=== PATIENT | female | born 1970 | race Caucasian/White ===

== ENCOUNTER 2022-06-19 11:10 | Outpatient (CLI) | payer OTHER | END 2022-06-19 11:11 | disposition home or self-care (01) | LOC: CSHRAD 11:10 | PROVIDERS: ATTEND Psychiatry & Neurology Neurology | DX: G35 Multiple sclerosis (principal); M20.11 Hallux valgus (acquired), right foot; M21.172 Varus deformity, not elsewhere classified, left ankle; M79.89 Other specified soft tissue disorders; M89.9 Disorder of bone, unspecified; M77.32 Calcaneal spur, left foot ==

== ENCOUNTER 2022-07-05 11:25 | Emergency (ER) | payer OTHER ==
[2022-07-05] MEDS ORDERED: Morphine 4 MG/ML VIAL ONE (12:20)
[2022-07-05] MEDS ORDERED: Ketorolac Tromethamine 30 MG/ML VIAL ONE (12:21)
[2022-07-05] MEDS ORDERED: Ondansetron PF 4 MG/2 ML Vial ONE (12:21)
[2022-07-05 12:43] LABS: #Basophils 0.1 10x3/uL (0.0-0.2); #Eosinphils 0.1 10x3/uL (0.0-0.5); #Monocytes 0.4 10x3/uL (0.0-1.1); #Neutrophils 4.8 10x3/uL (1.5-8.4); %Basophils 0.6 % (0.0-2.0); %Eosinophils 1.4 % (0.0-6.0); %Monocytes 5.3 % (0.0-10.0); %Neutrophils 60.2 % (40.0-75.0); Hemoglobin 10.8 g/dL (12.0-15.5); Mean Corpuscular HGB CONC 32.8 g/dL (32.0-36.0); Mean Corpuscular Hemoglobin 25.8 pg (27.0-33.0); Mean Corpuscular Volume 78.5 fl (81.6-98.3); Mean Platelet Volume 9.7 fl (7.4-10.4); Platelet Count 455 10x3/uL (150-450); RBC Distribution Width 15.1 % (11.5-14.5); Red Blood Cell (RBC) Count 4.19 10x6/uL (3.90-5.03); White Blood Cell (WBC) Count 7.9 10x3/uL (3.5-10.5)
[2022-07-05 12:54] LABS: Bilirubin Neg (Negative); Blood, Urine Negative (Negative); Clarity Clear (Clear); Glucose, Urine (Dipstick) Normal (Negative); Ketone, Urine 5 mg/dL (Negative); Leukocyte Negative (Negative); Nitrite Negative (Negative); Protein, Urine (Dipstick) Negative (Neg-Trace); Specific Gravity, Urine 1.005 (1.005-1.030); Urobilinogen Normal mg/dL (Less than 2)
[2022-07-05] MEDS ORDERED: methylPREDNISolone Sod Succ 1 GM in Sodium Chloride 0.9% 100 ML IVPB SCH (13:00)
[2022-07-05 13:28] LABS: ALT (SGPT) Less than 6 U/L (8-55); AST (SGOT) 9 U/L (5-34); Albumin 3.7 g/dL (3.5-5.0); Alkaline Phosphatase 80 U/L (40-110); Anion Gap 14 mmol/L (10-20); BUN (Urea Nitrogen) 13 mg/dL (7.0-18.7); Bilirubin, Total 0.3 mg/dL (0.2-1.2); CK (CPK) 29 U/L (29-168); Calc. Creatinine Clearance 0 mL/min (70-130); Calcium 9.4 mg/dL (7.8-10.44); Carbon Dioxide 23 mmol/L (22-29); Chloride 105 mmol/L (98-107); Estimated GFR 55; Glucose 222 mg/dL (70-105); Magnesium 1.5 mg/dL (1.6-2.6); Potassium 3.6 mmol/L (3.5-5.1); Protein, Total 6.7 g/dL (6.0-8.3); Sodium 138 mmol/L (136-145)
[2022-07-05] MEDS ORDERED: Magnesium 2 GM/50 ML BAG (IN WATER) ONE (13:39)
== END 2022-07-05 13:57 | disposition home or self-care (01) ==
LOC: CSHERS 11:25
DX: G35 Multiple sclerosis (principal); E11.9 Type 2 diabetes mellitus without complications; Z79.4 Long term (current) use of insulin; K21.9 Gastro-esophageal reflux disease without esophagitis; I10 Essential (primary) hypertension
CPT/HCPCS: 71045; 80053; 81003; 82550; 83605; 83735; 85025; 86140; 93005; 96365; 96375; J1885; J2270; J2405; J2930; J3475; J3490

== ENCOUNTER 2022-07-17 13:31 | Emergency (ER) | payer OTHER ==
[2022-07-17] MEDS ORDERED: Acetaminophen 500 MG TAB ONE (14:07)
[2022-07-17] MEDS ORDERED: methylPREDNISolone Sod Succ/PF 125 MG/2 ML VIAL ONE (14:08)
[2022-07-17 14:24] LABS: #Basophils 0.1 10x3/uL (0.0-0.2); #Eosinphils 0.1 10x3/uL (0.0-0.5); #Monocytes 0.5 10x3/uL (0.0-1.1); #Neutrophils 4.9 10x3/uL (1.5-8.4); %Basophils 0.6 % (0.0-2.0); %Eosinophils 1.2 % (0.0-6.0); %Lymphocytes 30.1 % (18.0-47.0); %Monocytes 6.1 % (0.0-10.0); %Neutrophils 61.3 % (40.0-75.0); Mean Corpuscular HGB CONC 31.5 g/dL (32.0-36.0); Mean Corpuscular Hemoglobin 25.4 pg (27.0-33.0); Mean Corpuscular Volume 80.5 fl (81.6-98.3); Mean Platelet Volume 9.4 fl (7.4-10.4); Platelet Count 362 10x3/uL (150-450); RBC Distribution Width 14.8 % (11.5-14.5); Red Blood Cell (RBC) Count 3.94 10x6/uL (3.90-5.03)
[2022-07-17 14:29] LABS: ALT (SGPT) Less than 6 U/L (8-55); AST (SGOT) 12 U/L (5-34); Alkaline Phosphatase 76 U/L (40-110); Anion Gap 17 mmol/L (10-20); BUN (Urea Nitrogen) 17 mg/dL (7.0-18.7); Bilirubin, Total 0.3 mg/dL (0.2-1.2); Calc. Creatinine Clearance 0 mL/min (70-130); Calcium 9.5 mg/dL (7.8-10.44); Carbon Dioxide 22 mmol/L (22-29); Chloride 102 mmol/L (98-107); Estimated GFR 48; Globulin 2.7 g/dL (2.4-3.5); Glucose 261 mg/dL (70-105); Potassium 3.9 mmol/L (3.5-5.1); Protein, Total 6.7 g/dL (6.0-8.3); Sodium 137 mmol/L (136-145)
[2022-07-17 14:40] LABS: Bilirubin Neg (Negative); Blood, Urine Negative (Negative); Clarity Clear (Clear); Glucose, Urine (Dipstick) 100 mg/dL (Negative); Ketone, Urine Negative (Negative); Leukocyte Negative (Negative); Nitrite Negative (Negative); Protein, Urine (Dipstick) Negative (Neg-Trace); Specific Gravity, Urine 1.005 (1.005-1.030); Urobilinogen Normal mg/dL (Less than 2)
[2022-07-17] MEDS ORDERED: Morphine 4 MG/ML VIAL ONE (16:33)
== END 2022-07-17 18:10 | disposition home or self-care (01) ==
LOC: CSHERS 13:31
DX: R07.89 Other chest pain (principal); G35 Multiple sclerosis; E11.9 Type 2 diabetes mellitus without complications; K21.9 Gastro-esophageal reflux disease without esophagitis; I10 Essential (primary) hypertension
CPT/HCPCS: 71045; 80053; 81003; 83880; 84484; 85025; 85379; 93005; 96361; 96374; 96375; J2270; J2930

== ENCOUNTER 2022-09-09 10:29 | Emergency (ER) | payer OTHER ==
[2022-09-09] MEDS ORDERED: HYDROcodone/Acetaminophen 5/325 mg Tablet ONE (11:14)
== END 2022-09-09 12:32 | disposition home or self-care (01) ==
LOC: CSHERS 10:29
DX: R51.9 Headache, unspecified (principal); M25.551 Pain in right hip; M25.561 Pain in right knee; M25.511 Pain in right shoulder; E11.9 Type 2 diabetes mellitus without complications; K21.9 Gastro-esophageal reflux disease without esophagitis; I10 Essential (primary) hypertension; W19.XXXA Unspecified fall, initial encounter
CPT/HCPCS: 70450; 70486

== ENCOUNTER 2024-02-16 21:20 | Inpatient (IN) | payer MEDICAID ==
[~2024-02-16 21:20] MED LIST: Iopamidol 370 76% 100 ML VIAL ONE
[2024-02-16 21:43] LABS: #Basophils 0.07 10x3/uL (0.0-0.2); #Eosinphils 0.24 10x3/uL (0.0-0.5); #Monocytes 0.56 10x3/uL (0.0-1.1); #Neutrophils 6.05 10x3/uL (1.5-8.4); %Basophils 0.7 % (0.0-2.0); %Eosinophils 2.4 % (0.0-6.0); %Monocytes 5.7 % (0.0-10.0); %Neutrophils 61.6 % (40.0-75.0); Hematocrit 35.9 % (34.9-44.5); Mean Corpuscular HGB CONC 30.6 g/dL (32.0-36.0); Mean Corpuscular Hemoglobin 23.5 pg (27.0-33.0); Mean Corpuscular Volume 76.5 fL (81.6-98.3); Mean Platelet Volume 9.2 fL (7.4-10.4); Platelet Count 416 10x3/uL (150-450); RBC Distribution Width 15.5 % (11.5-14.5); Red Blood Cell (RBC) Count 4.69 10x6/uL (3.90-5.03); White Blood Cell (WBC) Count 9.8 10x3/uL (3.5-10.5)
[2024-02-16 21:57] LABS: ALT (SGPT) Less than 7 U/L (8-55); AST (SGOT) 10 U/L (5-34); Acetaminophen Less than 10 mcg/mL (Less than 10); Albumin 4.2 g/dL (3.5-5.0); Alcohol Less than 10.0 mg/dL (Less than 10); Alkaline Phosphatase 112 U/L (40-110); Anion Gap 17 mmol/L (10-20); BUN (Urea Nitrogen) 18 mg/dL (9.8-20.1); Bilirubin, Total 0.3 mg/dL (0.2-1.2); Calc. Creatinine Clearance 0 mL/min (70-130); Calcium 10.2 mg/dL (7.8-10.44); Carbon Dioxide 23 mmol/L (22-29); Chloride 102 mmol/L (98-107); Estimated GFR 54; Globulin 3.7 g/dL (2.4-3.5); Glucose 232 mg/dL (70-105); Magnesium 1.8 mg/dL (1.6-2.6); Potassium 3.9 mmol/L (3.5-5.1); Protein, Total 7.9 g/dL (6.0-8.3); Salicylate Less than 8.0 mg/dL (Less than 8.0); Sodium 138 mmol/L (136-145)
[2024-02-16] MEDS ORDERED: hydrALAZINE 20 MG/ML VIAL SLOW IVP PRN (22:38)
[2024-02-16] MEDS ORDERED: Labetalol HCl 100 MG/20 ML VIAL SLOW IVP PRN (22:38)
[2024-02-16] MEDS ORDERED: Ondansetron PF 4 MG/2 ML Vial IVP PRN (22:38)
[2024-02-16 22:59] LABS: Bilirubin Neg (Negative); Blood, Urine Negative (Negative); Clarity Clear (Clear); Glucose, Urine (Dipstick) Normal (Negative); Ketone, Urine Negative (Negative); Leukocyte Negative (Negative); Nitrite Negative (Negative); Protein, Urine (Dipstick) Negative (Neg-Trace); Specific Gravity, Urine 1.005 (1.005-1.030); Urobilinogen Normal mg/dL (Less than 2)
[2024-02-16] MEDS ORDERED: Dextrose 5% in Water 1,000 ML IV PRN (23:00)
[2024-02-16] MEDS ORDERED: Dextrose 50% Abboject 50 ML SYRINGE SLOW IVP PRN (23:00)
[2024-02-16] MEDS ORDERED: Glucagon 1 MG/ML KIT IM PRN (23:00)
[2024-02-16 23:09] LABS: Amphetamine Not Detected (NotDetected); Barbiturates Screen Not Detected (NotDetected); Benzodiazepine Screen Not Detected (NotDetected); Cocaine Metabolite Screen Not Detected (NotDetected); Methadone Not Detected (NotDetected); Methamphetamine Not Detected (NotDetected); Opiate Screen Not Detected (NotDetected); Oxycodone Screen Not Detected (NotDetected); Phencyclidine (PCP) Not Detected (NotDetected); THC/Cannabinoid Screen Detected (NotDetected); Tricyclic Screen Not Detected (NotDetected)
[2024-02-16] MEDS ORDERED: Aspirin 325 mg Enteric Coated Tablet ONE (23:20)
[2024-02-16 23:35] LABS: Bacteria/HPF Rare-Few HPF (None Seen); CAUTI Indications for Culture Alt mental st,lethar; RBC/HPF None Seen HPF (0-3); Squamous Epithelial 0-3 HPF (0-3); Urine Culture Reflex No No; WBC/HPF None Seen HPF (0-3)
[2024-02-16 23:41] LABS: Iron 47 ug/dL (50-170); Iron Binding Capacity, Total 439 mcg/dL (265-497)
[2024-02-17] MEDS: Acetaminophen 325 MG TAB PO PRN (01:13)
[2024-02-17] MEDS: Pantoprazole DR 40 MG TAB PO SCH ×2 (01:14→19:42)
[2024-02-17] MEDS: methylPREDNISolone Sod Succ 1 GM, Admixture Fee 1 EACH in Sodium Chloride 0.9% 250 ML 2... IVPB SCH ×2 (01:25→22:39)
[2024-02-17 01:36] VITALS: BMI 37.5
[2024-02-17 03:44] LABS: #Basophils 0.03 10x3/uL (0.0-0.2); #Eosinphils 0.07 10x3/uL (0.0-0.5); #Monocytes 0.14 10x3/uL (0.0-1.1); #Neutrophils 6.07 10x3/uL (1.5-8.4); %Basophils 0.4 % (0.0-2.0); %Eosinophils 0.9 % (0.0-6.0); %Lymphocytes 15.8 % (18.0-47.0); %Monocytes 1.9 % (0.0-10.0); %Neutrophils 80.7 % (40.0-75.0); Hematocrit 34.3 % (34.9-44.5); Hemoglobin 10.2 g/dL (12.0-15.5); Mean Corpuscular HGB CONC 29.7 g/dL (32.0-36.0); Mean Corpuscular Hemoglobin 22.9 pg (27.0-33.0); Mean Corpuscular Volume 77.1 fL (81.6-98.3); Mean Platelet Volume 9.2 fL (7.4-10.4); Platelet Count 374 10x3/uL (150-450); RBC Distribution Width 15.4 % (11.5-14.5); Red Blood Cell (RBC) Count 4.45 10x6/uL (3.90-5.03); White Blood Cell (WBC) Count 7.5 10x3/uL (3.5-10.5)
[2024-02-17 04:01] LABS: Anion Gap 17 mmol/L (10-20); BUN (Urea Nitrogen) 17 mg/dL (9.8-20.1); Calc. Creatinine Clearance 78 mL/min (70-130); Calcium 9.7 mg/dL (7.8-10.44); Carbon Dioxide 22 mmol/L (22-29); Cardiac Risk 4.4 (Less than 4.5); Chloride 105 mmol/L (98-107); Cholesterol 179 mg/dl (< 200 Desired); Estimated GFR 52; Glucose 325 mg/dL (70-105); HDL Cholesterol 41 mg/dL (>60 Neg Risk); LDL Cholesterol, Calculated 115 mg/dL; Potassium 4.7 mmol/L (3.5-5.1); Sodium 139 mmol/L (136-145); Triglycerides 116 mg/dL (Less than 150)
[2024-02-17] MEDS: Insulin Lispro 100 UNIT/ML 10 ML VIAL SC PRN ×2 (05:58→20:52)
[2024-02-17] MEDS ORDERED: Calcium Carbonate 500 MG ChewTAB PO PRN (06:48)
[2024-02-17] MEDS: Baclofen 10 MG TAB PO SCH (08:53)
[2024-02-17] MEDS: Cholecalciferol 1,000 UNITS (25 MCG) TAB PO SCH (08:54)
[2024-02-17] MEDS: Gabapentin 300 MG CAP PO SCH (08:54)
[2024-02-17] MEDS: Escitalopram Oxalate 20 mg Tablet PO SCH (08:55)
[2024-02-17] MEDS: Aspirin 81 mg Enteric Coated Tablet PO SCH (08:55)
[2024-02-17] MEDS ORDERED: Pantoprazole DR 40 MG TAB PO SCH (09:00)
[2024-02-17] MEDS: HYDROcodone/Acetaminophen 5/325 mg Tablet PO PRN (10:35)
[2024-02-17] MEDS: Insulin Lispro 100 UNIT/ML 10 ML VIAL SC SCH (11:49)
[2024-02-17] MEDS ORDERED: Magnevist 469MG/ML 20 ML VIAL ONE (12:34)
[2024-02-17] MEDS: Morphine 2 MG/ML VIAL SLOW IVP PRN (14:11)
[2024-02-17 14:28] LABS: Hemoglobin A1c 10.2 % (4.0-6.0)
[2024-02-17] MEDS: Atorvastatin Calcium 10 MG TAB PO SCH (19:42)
[2024-02-17] MEDS: Lantus 1000 UNITS/10 ML VIAL SC SCH (20:50)
[2024-02-17] MEDS ORDERED: methylPREDNISolone Sod Succ/PF 125 MG/2 ML VIAL IVP SCH ×2 (23:15)
[2024-02-18 04:08] LABS: #Basophils 0.02 10x3/uL (0.0-0.2); #Monocytes 0.14 10x3/uL (0.0-1.1); #Neutrophils 12.95 10x3/uL (1.5-8.4); %Basophils 0.1 % (0.0-2.0); %Lymphocytes 6.1 % (18.0-47.0); %Neutrophils 92.2 % (40.0-75.0); Hematocrit 33.2 % (34.9-44.5); Hemoglobin 10.2 g/dL (12.0-15.5); Mean Corpuscular HGB CONC 30.7 g/dL (32.0-36.0); Mean Corpuscular Hemoglobin 23.5 pg (27.0-33.0); Mean Corpuscular Volume 76.5 fL (81.6-98.3); Mean Platelet Volume 9.4 fL (7.4-10.4); Platelet Count 408 10x3/uL (150-450); RBC Distribution Width 15.6 % (11.5-14.5); Red Blood Cell (RBC) Count 4.34 10x6/uL (3.90-5.03); White Blood Cell (WBC) Count 14.1 10x3/uL (3.5-10.5)
[2024-02-18 04:15] LABS: Anion Gap 14 mmol/L (10-20); BUN (Urea Nitrogen) 19 mg/dL (9.8-20.1); Calc. Creatinine Clearance 74 mL/min (70-130); Calcium 9.6 mg/dL (7.8-10.44); Carbon Dioxide 23 mmol/L (22-29); Chloride 105 mmol/L (98-107); Estimated GFR 49; Potassium 4.3 mmol/L (3.5-5.1); Sodium 138 mmol/L (136-145)
[2024-02-18] MEDS: Insulin Lispro 100 UNIT/ML 10 ML VIAL SC SCH (04:50)
[2024-02-18 04:56] LABS: Critical Call Chemistry NUR.CA5@0426; Glucose 437 mg/dL (70-105)
[2024-02-18] MEDS: Lantus 1000 UNITS/10 ML VIAL SC SCH ×2 (09:16→21:42)
[2024-02-18] MEDS: Insulin Regular, Human 100 UNIT/ML 10 ML VIAL SC SCH (12:39)
[2024-02-18] MEDS: Insulin Regular, Human 100 UNIT/ML 10 ML VIAL IVP SCH (15:06)
[2024-02-18] MEDS ORDERED: Lorazepam 2 MG/ML VIAL SLOW IVP PRN (15:07)
[2024-02-18 15:56] LABS: Troponin I Less than 0.010 ng/mL (< 0.028)
[2024-02-18] MEDS: dilTIAZem 25 MG/5 ML VIAL SLOW IVP SCH (16:13)
[2024-02-18] MEDS: Lorazepam 2 MG/ML VIAL SLOW IVP SCH (16:18)
[2024-02-18] MEDS: Furosemide 40 MG (4 mL) VIAL SLOW IVP SCH (16:20)
[2024-02-18] MEDS: dilTIAZem 125 MG in Sodium Chloride 0.9% 100 ML IVPB SCH (16:21)
[2024-02-18] MEDS: Magnesium 2 GM/50 ML(in water) 2 GM in Premix 1 BAG IVPB SCH (16:39)
[2024-02-18] MEDS ORDERED: dilTIAZem CD 180 MG CAP PO SCH (17:00)
[2024-02-18] MEDS: Atenolol 25 MG TAB PO SCH (17:28)
[2024-02-18] MEDS: Dronedarone HCl 400 MG TAB PO SCH (17:28)
[2024-02-18] MEDS: dilTIAZem CD 120 MG CAP PO SCH (17:28)
[2024-02-18 17:35] LABS: Troponin I Less than 0.010 ng/mL (< 0.028)
[2024-02-18] MEDS: Insulin Regular, Human 100 UNIT/ML 10 ML VIAL SC PRN (19:07)
[2024-02-18 19:58] LABS: Troponin I 0.037 ng/mL (< 0.028)
[2024-02-18] MEDS: Apixaban 5 MG TAB PO SCH (21:40)
[2024-02-19 04:25] LABS: Anion Gap 15 mmol/L (10-20); BUN (Urea Nitrogen) 27 mg/dL (9.8-20.1); Calc. Creatinine Clearance 71 mL/min (70-130); Calcium 9.5 mg/dL (7.8-10.44); Carbon Dioxide 24 mmol/L (22-29); Chloride 102 mmol/L (98-107); Estimated GFR 47; Glucose 252 mg/dL (70-105); Magnesium 2.5 mg/dL (1.6-2.6); Potassium 4.4 mmol/L (3.5-5.1); Sodium 137 mmol/L (136-145)
[2024-02-19] MEDS: Atenolol 25 MG TAB PO SCH (08:26)
[2024-02-19] MEDS: dilTIAZem CD 120 MG CAP PO SCH (08:27)
[2024-02-19] MEDS ORDERED: dilTIAZem CD 180 MG CAP PO SCH (09:00)
[2024-02-19] MEDS: Furosemide 20 MG TAB PO SCH (14:09)
[2024-02-20 04:13] LABS: Anion Gap 16 mmol/L (10-20); BUN (Urea Nitrogen) 32 mg/dL (9.8-20.1); Calc. Creatinine Clearance 71 mL/min (70-130); Calcium 9.7 mg/dL (7.8-10.44); Carbon Dioxide 26 mmol/L (22-29); Chloride 102 mmol/L (98-107); Estimated GFR 47; Glucose 227 mg/dL (70-105); Potassium 3.9 mmol/L (3.5-5.1); Sodium 140 mmol/L (136-145)
[2024-02-20 16:46] VITALS: BP 113/77; TEMP 97.9
== END 2024-02-20 18:41 | disposition home or self-care (01) | DRG 58 ==
LOC: CSHERS 21:20 → INTOOBSV 02-17 00:34 → CSHTELE 02-17 00:34 → OBSVTOIN 02-18 09:06
PROVIDERS: ADMIT Internal Medicine; ATTEND Family Medicine
DX: G35 Multiple sclerosis (principal); I50.31 Acute diastolic (congestive) heart failure; I13.0 Hypertensive heart and chronic kidney disease with heart failure and stage 1 through stage 4 chronic kidney disease, or unspecified chronic kidney disease; I48.92 Unspecified atrial flutter; G81.94 Hemiplegia, unspecified affecting left nondominant side; E11.22 Type 2 diabetes mellitus with diabetic chronic kidney disease; D63.1 Anemia in chronic kidney disease; N18.31 Chronic kidney disease, stage 3a; K21.9 Gastro-esophageal reflux disease without esophagitis; F41.9 Anxiety disorder, unspecified; F12.90 Cannabis use, unspecified, uncomplicated; Z98.51 Tubal ligation status; Z90.710 Acquired absence of both cervix and uterus; Z98.890 Other specified postprocedural states
CPT/HCPCS: 0042T; 36415; 36416; 70450; 70553; 71045; 76376; 80048; 80053; 80061; 80306; 80307; 81001; 82728; 83036; 83540; 83550; 83735; 83880; 84436; 84443; 84484; 85025; 86140; 93005; 93010; 93306; 94760; 94762; 96374; A9579; J1815; J1940; J2060; J2272; J2930; J3475; J7050; Q9967